=== PATIENT | female | born 1990 | race Caucasian/White ===

== ENCOUNTER 2018-07-07 22:08 | Emergency (ER) | payer SELFPAY ==
--- NOTE | 2018-07-08 01:58 | ER Document Report ---
HPI - HPI Patient complains to provider of: States panic attack and then felt heart racing Time Seen by Provider: 07/08/18 01:54 Onset: Last week - Intermittently for the last week. She states she has a long history of panic attacks and anxiety Onset/Duration: Intermittent Quality of pain: No pain Severity: None Pain Level: Denies Associated Symptoms: Other - States sometimes she has chest pain sometimes she is dizzy feels like her heart racing when she takes her pulse is in the 90s. States she has a long history of anxiety and panic attacks Exacerbated by: Other Relieved by: Denies - When anxious Similar symptoms previously: Yes Recently seen / treated by doctor: No - ROS ROS below otherwise negative: Yes - CONSTITUTIONAL Constitutional: DENIES: Fever, Chills - EENT EENT: DENIES: Sore Throat, Ear Pain, Nasal Drainage-Clear, Nasal Drainage- Purulent, Congestion, Eye problems - NEURO Neurology: DENIES: Headache, Weakness, Vision blurred, Dizzinesss / Vertigo - CARDIOVASCULAR Cardiovascular: DENIES: Chest pain - RESPIRATORY Respiratory: DENIES: Trouble Breathing, Coughing - GASTROINTESTINAL Gastrointestinal: DENIES: Abdominal Pain, Nausea, Patient vomiting, Diarrhea, Constipation, Black / Bloody Stools - URINARY Urinary: DENIES: Dysuria, Urgency, Frequency - REPRODUCTIVE Reproductive: DENIES: :, Postmenopausal, Abnormal bleeding / discharge - MUSCULOSKELETAL Musculoskeletal: DENIES: Extremity pain, Back Pain, Neck Pain, Swelling - DERM Skin Color: Normal, [place] Skin Problems: None Past Medical History - General Information source: Patient - Social History Smoking Status: Current Every Day Smoker Cigarette use (# per day): Yes - 1/2 ppd Chew tobacco use (# tins/day): No Smoking Education Provided: Yes - 4 min Frequency of alcohol use: None Drug Abuse: None Lives with: Family Family History: Reviewed & Not Pertinent Patient has suicidal ideation: No Patient has homicidal ideation: No - Past Medical History Cardiac Medical History: Reports: Hx Hypercholesterolemia, Hx Hypertension Pulmonary Medical History: Reports: None EENT Medical History: Reports: None Neurological Medical History: Reports: None Endocrine Medical History: Reports: None Renal/ Medical History: Reports: Hx Ovarian Cysts Malignancy Medical History: Reports: None GI Medical History: Reports: None Musculoskeletal Medical History: Reports None Skin Medical History: Reports None Psychiatric Medical History: Reports: Hx Anxiety, Other - panic attack Traumatic Medical History: Reports: None Infectious Medical History: Reports: None Past Surgical History: Reports: Hx Section, Hx Gynecologic Surgery - lap, Hx Tonsillectomy Vertical Provider Document - CONSTITUTIONAL Agree With Documented VS: Yes Exam Limitations: No Limitations General Appearance: WD/WN, No Apparent Distress - INFECTION CONTROL TRAVEL OUTSIDE OF THE [place] IN LAST 30 DAYS: No - HEENT HEENT: Atraumatic, Normal ENT Exam, Normocephalic, PERRLA - RESPIRATORY Respiratory: Breath Sounds Normal, No Respiratory Distress, Chest Non-Tender - CARDIOVASCULAR Cardiovascular: Regular Rate, Regular Rhythm, No Murmur - GI/ABDOMEN Gastrointestinal: Abdomen Soft, Abdomen Non-Tender, No Organomegaly, Normal Reji wel Sounds - BACK Back: Normal Inspection - MUSCULOSKELETAL/EXTREMETIES Musculoskeletal/Extremeties: MAEW, FROM, Non-Tender - NEURO Level of Consciousness: Awake, Alert, Appropriate - DERM Integumentary: Warm, Dry, No Rash Course - Vital Signs Vital signs: Temp Pulse Resp BP Pulse Ox 98.4 F 95 19 142/81 H 96 07/07/18 22:38 07/07/18 22:38 07/07/18 22:38 07/07/18 22:38 07/07/18 22:38 Discharge - Discharge Clinical Impression: Panic attack Condition: Stable Disposition: HOME, SELF-CARE Additional Instructions: Anxiety The physician feels that some of your health problems are being caused by anxiety. Anxiety affects your health in many ways. Anxiety alone can cause palpitations, sweats, chest pains, abdominal pains, shortness of breath, and headaches. It contributes to ulcer disease, high blood pressure, irritable bowel syndrome, and has been shown to cause flare-ups of many other diseases. Anxiety is not a simple disorder to treat. If the anxiety is due to recent life stresses, you may simply need time to "work through" the changes. If the anxiety is due to an underlying unhappiness with yourself or due to psychiatric disturbance, professional help will be needed. Your physician can refer you for further help if needed. Anti-anxiety medication is occasionally given if the stress is acute or if you are having trouble sleeping. Chronic or frequent use of these medications is not a good idea because the body becomes reliant on it, preventing you from dealing with life's normal stresses. Panic Attack The cause of panic attacks is unknown. Symptoms can include chest pain, shortness of breath, palpitations, sweats, and a sense of smothering or impending doom. In time, the panic attacks can lead to generalized anxiety and phobias. Because the symptoms can mimic heart attack, pulmonary embolism, and other serious diseases, the physician has evaluated you for these conditions. There is no evidence of a serious problem. An acute panic attack usually goes away by itself without treatment. A severe attack can be treated with medicine to calm you. Long-term, antidepressant medicines may help prevent attacks. Counselling can also be very beneficial in dealing with panic attacks. Panic attacks are less likely if you are getting regular exercise, proper diet, and plenty of sleep. It's normal for panic attacks to cause many frightening symptoms. However, you should call or return if your symptoms change significantly or if you are worsening. Please be sure to follow-up with [facility] as soon as possible. Please be cautious taking other peoples medications without being aware of the side effects. Hydrochlorothiazide is not a medication you should take in less it is prescribed for you. FOLLOW-UP CARE: If you have been referred to a physician for follow-up care, call the physicians office for an appointment as you were instructed or within the next two days. If you experience worsening or a significant change in your symptoms, notify the physician immediately or return to the Emergency Department at any time for re-evaluation. Forms: Elevated Blood Pressure, Smoking Cessation Education Referrals: [facility] [Provider Group] - Follow up as needed
[2018-07-08 02:56] VITALS: BP 149/79
--- NOTE | 2018-07-08 12:34 | EKG REPORT ---
SEVERITY:- NORMAL ECG - SINUS RHYTHM : Confirmed by: Verónica Quiroz MD 08-Jul-2018 12:34:12
== END 2018-07-08 02:56 | disposition home or self-care (01) ==
LOC: ER 22:08
DX: F41.0 Panic disorder [episodic paroxysmal anxiety] (principal); R00.2 Palpitations; F41.9 Anxiety disorder, unspecified; R07.9 Chest pain, unspecified; R42 Dizziness and giddiness; F17.210 Nicotine dependence, cigarettes, uncomplicated; I10 Essential (primary) hypertension
CPT/HCPCS: 93005; 93010; 99284; 99406

== ENCOUNTER 2019-01-27 19:59 | Emergency (ER) | payer SELFPAY ==
[2019-01-27] MEDS ORDERED: HYDROXYZINE PAMOATE 25 MG CAPSULE (4 CAP/ER DISP) PO PRN (21:53)
--- NOTE | 2019-01-27 22:00 | ER Document Report ---
HPI - HPI Time Seen by Provider: 01/27/19 21:13 Context: Patient is a 28-year-old female that comes to the emergency department for chief complaint of generalized anxiety. She states that she feels anxious throughout the day, she feels herself obsessing on things and she feels that she cannot stop, she states she has started smoking to calm down and she does not want to be smoking, she also states she has trouble sleeping unless she drinks a drink of alcohol. She denies alcohol abuse, recreational drugs, suicidal or homicidal ideations, history of psychiatric hospitalizations. She states that she has been on different medications in the past including Celexa and Abilify but she is not currently on anything and does not currently have a primary care provider. She denies any current symptoms or complaints otherwise including shortness of breath, chest pain, nausea/vomiting. She denies . Patient secondarily states that she has a painful tooth on the right posterior molar in the upper part of her mouth it is starting to become painful like it is getting infected, she has had this experience previously. She denies swelling of the face, sore throat, neck pain, fever. - REPRODUCTIVE Reproductive: DENIES: : Past Medical History - General Information source: Patient - Social History Smoking Status: Never Smoker Frequency of alcohol use: Occasional Drug Abuse: None Lives with: Family Family History: Reviewed & Not Pertinent - Past Medical History Cardiac Medical History: Reports: Hx Hypercholesterolemia, Hx Hypertension Renal/ Medical History: Reports: Hx Ovarian Cysts. Denies: Hx Peritoneal Dialysis Psychiatric Medical History: Reports: Hx Anxiety, Hx Depression Past Surgical History: Reports: Hx Cardiac Surgery, Hx Section, Hx Gynecologic Surgery - lap, Hx Tonsillectomy - Immunizations Immunizations up to date: Yes Hx Diphtheria, Pertussis, Tetanus Vaccination: Yes Vertical Provider Document - CONSTITUTIONAL General Appearance: WD/WN, No Apparent Distress - INFECTION CONTROL TRAVEL OUTSIDE OF THE [place] IN LAST 30 DAYS: No - HEENT HEENT: Atraumatic, Normal ENT Exam. negative: Normocephalic - There is a nontender cyst noted over the right occipital area without surrounding erythema, fluctuance, or induration. Unremarkable otherwise Mouth Diagram: 1 - Dental fracture noted but no surrounding erythema, fluctuance, induration, or other concerning findings noted - NECK Neck: Normal Inspection - RESPIRATORY Respiratory: Breath Sounds Normal, No Respiratory Distress - CARDIOVASCULAR Cardiovascular: Regular Rate, Regular Rhythm - GI/ABDOMEN Gastrointestinal: Abdomen Soft, Abdomen Non-Tender - BACK Back: Normal Inspection - MUSCULOSKELETAL/EXTREMETIES Musculoskeletal/Extremeties: MAEW, FROM, Non-Tender - NEURO Level of Consciousness: Awake, Alert, Appropriate - Patient speaks very rapidly and somewhat anxiously but she does make good eye contact, is not responding to internal stimuli, and is easily reassured Motor/Sensory: No Motor Deficit, No Sensory Deficit - DERM Integumentary: Warm, Dry, No Rash Course - Re-evaluation Re-evalutation: Patient has a chronic cyst noted on exam but her physical exam is completely unremarkable otherwise. Patient is anxious on evaluation but she was easily reassured. She is not suicidal or homicidal. This is ongoing. She is also been previously treated for this successfully. She is looking for local follow- up and initiation of treatment. After long discussion decision was made to place her on Celexa but this will need to be rechecked promptly, patient states she will follow-up closely for this. She was also given Vistaril for as needed anxiety/panic attacks/insomnia. Discussed return precautions in detail. Patient states understanding and agreement. Smiling and stable at time of discharge. Patient was also supplied with penicillin for dental complaint and she states understanding of importance of dental follow-up. - Vital Signs Vital signs: Temp Pulse Resp BP Pulse Ox 98.3 F 68 16 124/79 93 01/27/19 20:07 01/27/19 20:07 01/27/19 20:07 01/27/19 20:07 01/27/19 20:07 Discharge - Discharge Clinical Impression: Anxiety, Panic attacks, Obsessive behaviors, Pain, dental Condition: Stable Disposition: HOME, SELF-CARE Instructions: Anxiety ([facility]) Additional Instructions: Start the daily Celexa for generalized anxiety and OCD as we discussed. You will likely need dosing adjustments. Please have this adjusted closely by the primary care follow-up and also with [facility]/psychiatry. See referrals and call for your follow-up. Take the Vistaril as needed only for severe anxiety/panic attack or insomnia. This can be sedating. Take the penicillin for the dental infection as prescribed, follow-up closely with the clinic for additional management of this. Return for any concerning symptoms including swelling of the face or if something is not right. Prescriptions: Citalopram Hydrobromide [Celexa 20 mg Tablet] 20 mg PO DAILY #30 tablet Penicillin V Potassium [Penicillin Vk 500 mg Tablet] 500 mg PO BID #20 tablet Hydroxyzine Pamoate [Vistaril 25 mg Capsule] 1 - 2 cap PO Q6 PRN #30 capsule PRN Reason: Referrals: [facility] [Provider Group] - Follow up as needed [facility] [Provider Group] - Follow up as needed [facility] [Provider Group] - Follow up as needed
[2019-01-27 22:46] VITALS: BP 113/79
== END 2019-01-27 22:53 | disposition home or self-care (01) ==
LOC: ER 19:59
DX: F41.9 Anxiety disorder, unspecified (principal); I10 Essential (primary) hypertension; F41.0 Panic disorder [episodic paroxysmal anxiety]; G47.00 Insomnia, unspecified; K08.89 Other specified disorders of teeth and supporting structures
CPT/HCPCS: 99283

== ENCOUNTER 2019-06-05 20:32 | Emergency (ER) | payer MEDICAID ==
[2019-06-05 20:57] VITALS: BP 125/60
[2019-06-05] MEDS ORDERED: NORMAL SALINE 1000 ML 1,000 ML IV ONE (22:05)
[2019-06-05] MEDS ORDERED: ACETAMINOPHEN 325 MG TABLET PO ONE (22:05)
--- NOTE | 2019-06-05 22:06 | ER Document Report ---
ED Medical Screen (RME) - General Chief Complaint: Headache Stated Complaint: MIGRAINE RAPID HEART RATE Time Seen by Provider: 06/05/19 22:00 Mode of Arrival: Ambulatory Notes: Patient presents complaint of migraine headache for the past 2 days. Patient also reports palpitations in which she felt like her heart was racing today. Patient denies any fever nausea or vomiting. Patient denies any improvement after taking Tylenol today. Patient is currently 14 weeks G7, P1. I have greeted and performed a rapid initial assessment of this patient. A comprehensive ED assessment and evaluation of the patient, analysis of test results and completion of the medical decision making process will be conducted by additional ED providers. TRAVEL OUTSIDE OF THE [place] IN LAST 30 DAYS: No - Related Data Allergies/Adverse Reactions: metronidazole [From Flagyl] Allergy (Verified 01/27/19 22:39) sulfamethoxazole [From Septra] Allergy (Verified 01/27/19 22:39) trimethoprim [From Decra] Allergy (Verified 01/27/19 22:39) Past Medical History - Past Medical History Cardiac Medical History: Reports: Hx Hypercholesterolemia, Hx Hypertension Renal/ Medical History: Reports: Hx Ovarian Cysts. Denies: Hx Peritoneal Dialysis Psychiatric Medical History: Reports: Hx Anxiety, Hx Depression Past Surgical History: Reports: Hx Cardiac Surgery, Hx Section, Hx Gynecologic Surgery - lap, Hx Tonsillectomy - Immunizations Immunizations up to date: Yes Hx Diphtheria, Pertussis, Tetanus Vaccination: Yes Physical Exam - Vital signs Vitals: Temp Pulse Resp BP Pulse Ox 98.6 F 93 16 125/60 96 06/05/19 20:55 06/05/19 20:55 06/05/19 20:55 06/05/19 20:55 06/05/19 20:55 - Cardiovascular Rhythm: Regular. No: Tachycardia Heart sounds: S1 appreciated, S2 appreciated - Neurological Orientation: AAOx4 [place] Coma Scale Eye Opening: Spontaneous [place] Coma Scale Verbal: Oriented [place] Coma Scale Motor: Obeys Commands [place] Coma Scale Total: 15 Course - Vital Signs Vital signs: Temp Pulse Resp BP Pulse Ox 98.6 F 93 16 125/60 96 06/05/19 20:55 06/05/19 20:55 06/05/19 20:55 06/05/19 20:55 06/05/19 20:55
== END 2019-06-06 02:19 | disposition left against medical advice (07) ==
LOC: ER 20:32
DX: O99.352 Diseases of the nervous system complicating pregnancy, second trimester (principal); G43.909 Migraine, unspecified, not intractable, without status migrainosus; O26.892 Other specified pregnancy related conditions, second trimester; R00.2 Palpitations; O16.2 Unspecified maternal hypertension, second trimester; Z3A.14 14 weeks gestation of pregnancy; Z88.1 Allergy status to other antibiotic agents; Z53.20 Procedure and treatment not carried out because of patient's decision for unspecified reasons
CPT/HCPCS: 99281

== ENCOUNTER 2019-06-16 15:09 | Emergency (ER) | payer OTHER, MEDICAID ==
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
[2019-06-16 17:17] VITALS: BP 115/61
== END 2019-06-16 17:15 | disposition home or self-care (01) ==
LOC: ER 15:09
DX: O26.892 Other specified pregnancy related conditions, second trimester (principal); R10.2 Pelvic and perineal pain; V49.9XXA Car occupant (driver) (passenger) injured in unspecified traffic accident, initial encounter; O99.332 Smoking (tobacco) complicating pregnancy, second trimester; F17.200 Nicotine dependence, unspecified, uncomplicated; O16.2 Unspecified maternal hypertension, second trimester; Z3A.15 15 weeks gestation of pregnancy
CPT/HCPCS: 76805; 93976; 99284